=== PATIENT | male | born 1970 | race Caucasian/White ===

== ENCOUNTER 2019-05-18 09:00 | Outpatient (CLI) | payer OTHER ==
--- NOTE | 2019-05-18 11:41 | MRI ---
EXAM: MRI left knee PROVIDED CLINICAL HISTORY: Pain status post injury COMPARISON: None FINDINGS: The anterior cruciate ligament, posterior cruciate ligament, medial collateral ligament and lateral c ollateral ligamentous complex demonstrate an intact MR appearance, as does the extensor mechanism. There is equivocal grade 3 signal seen involving the tibial articular surface of the body of the medi al meniscus on a single coronal image (image 19 series 3). The lateral meniscus demonstrates no evidence for tear. No focal articular cartilage defect is apparent. There is cortical impaction fracture involving the anteromedial margin of the proximal tibial meta-ep iphyseal region. Osseous contusion is noted involving the medial aspects of the medial femoral condyle posteriorly. There is a large knee joint effusion. Noncircumscribed fluid signal intensity is noted within portion s of the left biceps femoris muscle IMPRESSION: 1. Equivocal grade 3 signal involving the body of the medial meniscus. 2. Cortical impaction fracture involving the anteromedial proximal tibia and contusion involving medi al femoral condyle. 3. Large knee joint effusion. 4. Muscular strain involving biceps femoris.
== END 2019-05-18 09:01 | disposition home or self-care (01) ==
LOC: SCSMRI 09:00
PROVIDERS: ATTEND Orthopaedic Surgery
DX: M23.92 Unspecified internal derangement of left knee (principal); S46.212A Strain of muscle, fascia and tendon of other parts of biceps, left arm, initial encounter; S70.12XA Contusion of left thigh, initial encounter; S89.002A Unspecified physeal fracture of upper end of left tibia, initial encounter for closed fracture

== ENCOUNTER 2022-10-09 09:53 | Outpatient (CLI) | payer BC | END 2022-10-09 09:54 | disposition home or self-care (01) | LOC: SCSRAD 09:53 | PROVIDERS: ATTEND Nurse Practitioner Family | DX: S89.92XA Unspecified injury of left lower leg, initial encounter (principal) ==